=== PATIENT | male | born 1995 | race Two or more races ===

== ENCOUNTER 2017-11-14 11:06 | Outpatient (CLI) | payer OTHER | END 2017-11-14 11:13 | disposition home or self-care (01) | LOC: SONOGRAMA 11:06 | DX: S90.02XA Contusion of left ankle, initial encounter (principal) ==

== ENCOUNTER 2017-11-14 12:10 | Outpatient (CLI) | payer OTHER | END 2017-11-14 12:25 | disposition home or self-care (01) | LOC: RAD 12:10 | DX: M25.572 Pain in left ankle and joints of left foot (principal) ==

== ENCOUNTER 2017-11-14 13:04 | Outpatient (CLI) | payer OTHER | END 2017-11-14 13:18 | disposition home or self-care (01) | LOC: MRI 13:04 | DX: M25.572 Pain in left ankle and joints of left foot (principal) | CPT/HCPCS: 73718 ==

== ENCOUNTER → 2021-02-07 | Outpatient (CLI) | payer OTHER | END | disposition home or self-care (01) | LOC: RAD 10:25 | PROVIDERS: ATTEND Radiology Diagnostic Radiology | DX: S60.211A Contusion of right wrist, initial encounter (principal) ==

== ENCOUNTER 2024-11-18 09:25 | Outpatient (CLI) | payer OTHER | END 2024-11-18 09:50 | disposition home or self-care (01) | LOC: MRI 09:25 | PROVIDERS: ATTEND Radiology Diagnostic Radiology | DX: M25.561 Pain in right knee (principal) | CPT/HCPCS: 73721 ==

== ENCOUNTER 2024-12-04 11:01 | Outpatient (CLI) | payer OTHER | END 2024-12-04 11:05 | disposition home or self-care (01) | LOC: RAD 11:01 | PROVIDERS: ATTEND Orthopaedic Surgery Sports Medicine | DX: M76.52 Patellar tendinitis, left knee (principal); M76.51 Patellar tendinitis, right knee ==